=== PATIENT | female | born 1980 | race African-American/Black ===

== ENCOUNTER 2019-06-06 09:10 | Outpatient (CLI) | payer OTHER, MEDICAID, SELFPAY ==
--- NOTE | ~2019-06-06 | MM_ITS ---
EXAMINATION: MM screening chuck BI w anirudh HISTORY: Screening mammogram TECHNIQUE: Craniocaudal and mediolateral oblique 3-D tomosynthesis images were obtained and synthetic 2-D images were generated. CAD analysis was submitted and interpreted. COMPARISON: No prior mammogram is available for comparison at this institution. BREAST PARENCHYMAL COMPOSITION: The breasts are almost entirely fatty. FINDINGS: A superficial low-density circumscribed 8.5 mm opacity is noted in the upper outer quadrant of the right breast; the mammographic appearance is benign. There is no evidence of suspicious mass, calcification, or architectural distortion to suggest malignancy in either breast. There has been no suspicious interval change. IMPRESSION: 1. No mammographic evidence of malignancy. 2. Recommend routine screening mammography in one year. BI-RADS Category 2: Benign finding(s). Reviewed, dictated and finalized at location A. T STACKER
--- NOTE | ~2019-06-06 | XR_ITS ---
EXAMINATION: XR knee RT min 4V DATE: 06/06/2019 10:02 INDICATION: Right knee pain. TECHNIQUE: 4 views of right knee were obtained. COMPARISON: None. FINDINGS: There is lateral subluxation of patella. No fracture. There is mild tricompartmental osteoa rthritis. No knee joint effusion. IMPRESSION: 1. Mild right knee osteoarthritis. Reviewed, dictated and finalized at location A. CTOR OF PATIENT SAFETY
== END 2019-06-06 09:11 | disposition home or self-care (01) ==
PROVIDERS: PCP Physician Assistant; Visit Provider Physician Assistant
DX: Z12.31 Encounter for screening mammogram for malignant neoplasm of breast (principal); M17.11 Unilateral primary osteoarthritis, right knee
CPT/HCPCS: 73564; 77063; 77067